=== PATIENT | male | born 1995 | race African-American/Black ===

== ENCOUNTER 2017-11-06 21:16 | Inpatient (IN) | payer OTHER ==
[~2017-11-06] VITALS: Ht 193 cm; Wt 61.9 kg
[2017-11-06 22:10] LABS: BASOPHIL (%) 0.1 % (0-1); EOSINOPHIL (%) 1.7 % (0-5); EOSINOPHIL COUNT 0.2 K/uL (0-0.3); HEMATOCRIT 44.2 % (38.0-50.0); HEMOGLOBIN 15.3 G/DL (12.5-16.6); IMMATURE GRANULOCYTE (%) 0.5 % (0.0-0.7); LYMPHOCYTE (%) 14.7 % (15-42); LYMPHOCYTE COUNT 1.5 K/uL (1.0-2.8); MCHC 34.6 G/DL (30.0-36.0); MCV 89.5 FL (86-99); MONOCYTE (%) 5.6 % (3-12); MONOCYTE COUNT 0.6 K/uL (0-0.8); NEUTROPHIL (%) 77.4 % (45-76); NEUTROPHIL COUNT 7.9 K/uL (1.8-6.4); PLATELET COUNT 192 K/uL (156-360); RBC DIS.WIDTH-CV 12.8 % (11.8-14.6); RBC DIS.WIDTH-SD 41.8 % (39-53); RED BLOOD COUNT 4.94 M/uL (4.00-5.50); WHITE BLOOD COUNT 10.2 K/uL (4.1-10.2)
[2017-11-06 22:18] LABS: ALBUMIN 4.2 g/dL (3.2-4.8); CHLORIDE 103 mEq/L (99-109); SODIUM 140 mEq/L (136-147)
[2017-11-06 22:20] LABS: GLUCOSE 92 mg/dL (70-99); TOTAL PROTEIN 7.4 g/dL (6.4-8.3)
[2017-11-06 22:22] LABS: TOTAL BILIRUBIN 0.8 mg/dL (0.0-1.0)
[2017-11-06 22:23] LABS: SERUM ETHYL ALCOHOL < 10 mg/dL
[2017-11-06 22:24] LABS: ALKALINE PHOSPHATASE 64 IU/L (3-129); CREATININE 1.1 mg/dL (0.6-1.3); GFR ESTIMATE (CALCULATED) > 59 mL/min/ (58.99-99999)
[2017-11-06 22:25] LABS: UREA NITROGEN (BUN) 7 mg/dL (9-23)
[2017-11-06 22:26] LABS: AST (GOT) 25 IU/L (2-34)
[2017-11-06 22:27] LABS: ALT (GPT) 11 IU/L (3-49); LIPASE 5 U/L (1.0-51.0)
[2017-11-07 01:38] LABS: APPEARANCE SL.HAZY ((CLEAR)); BILIRUBIN NEGATIVE; BLOOD NEGATIVE; COLOR YELLOW ((YELLOW)); GLUCOSE (STRIP) NEGATIVE; KETONES 5; LEUKOCYTES NEGATIVE; NITRITE NEGATIVE; PROTEIN (STRIP) NEGATIVE; SPECIFIC GRAVITY 1.019 (1.000-1.030); UROBILINOGEN 0.2 MG/DL (0.2-1.0)
[2017-11-07 01:42] LABS: BACTERIA NONE SEEN /HPF; EPITHELIAL CELLS RARE /HPF; MUCUS 2+ /LPF; RED BLOOD CELLS 0-5 /HPF (0-5); UCUL ADDED? NO; WHITE BLOOD CELLS 0-5 /HPF (0-5)
[2017-11-07 04:12] VITALS: BP 131/87
[2017-11-07 07:08] VITALS: BP 112/59
[2017-11-07 15:14] VITALS: BP 124/72
[2017-11-07 19:30] VITALS: BP 114/60
[2017-11-08 00:10] VITALS: BP 127/66
[2017-11-08 04:25] VITALS: BP 121/66
[2017-11-08 07:16] VITALS: BP 125/71
[2017-11-08 15:44] VITALS: BP 115/59
[2017-11-08 23:33] VITALS: BP 133/60
[2017-11-09 08:21] VITALS: BP 116/69
[2017-11-09 15:54] VITALS: BP 125/78
[2017-11-09 23:40] VITALS: BP 135/71
[2017-11-10 07:41] VITALS: BP 106/57
[2017-11-10 08:22] VITALS: BP 106/57
== END 2017-11-10 11:51 | disposition home or self-care (01) | DRG 389 ==
LOC: EME 21:16 → 3EAST 11-07 03:03 → EDOF 11-07 03:03 → ENRESERV 11-07 03:04 → 3EAST 11-07 04:07
PROVIDERS: Emergency Medicine
DX: K56.609 Unspecified intestinal obstruction, unspecified as to partial versus complete obstruction (principal); F12.90 Cannabis use, unspecified, uncomplicated; F17.290 Nicotine dependence, other tobacco product, uncomplicated; R63.6 Underweight; Z68.1 Body mass index [BMI] 19.9 or less, adult; Z98.1 Arthrodesis status
CPT/HCPCS: 71010; 74000; 74020; 74177; 80053; 81003; 83690; 85025; 99281; 99285; G0480; J1170; J1650; J2270; J2405; J7030; J7120